=== PATIENT | male | born 1985 | race Caucasian/White ===

== ENCOUNTER 2018-12-22 11:23 | Emergency (ER) | payer OTHER ==
[~2018-12-22] VITALS: Ht 185.4 cm; Wt 79.3 kg
[2018-12-22 12:46] VITALS: BP 124/83
--- NOTE | 2018-12-22 12:49 | REP ---
LEFT FIRST DIGIT: Four view of the left first digit performed including a scaphoid view. There is no evidence of acute fracture, dislocation or intrinsic bone disease. Electronically Signed by Yusuf Duncan MD 12/22/2018 01:03 P
== END 2018-12-22 12:51 | disposition home or self-care (01) ==
LOC: M ED 11:23
DX: S63.602A Unspecified sprain of left thumb, initial encounter (principal); X58.XXXA Exposure to other specified factors, initial encounter; Y92.018 Other place in single-family (private) house as the place of occurrence of the external cause